=== PATIENT | female | born 1960 | race Caucasian/White ===

== ENCOUNTER → 2024-08-04 | Day surgery (SDC) | payer BC, OTHER | END | disposition home or self-care (01) | LOC: JRADUS-SUR 08:23 | PROVIDERS: ATTEND Obstetrics & Gynecology | PROC: 0HBU3ZX Excision of Left Breast, Percutaneous Approach, Diagnostic (ICD-10-PCS; principal; 2024-08-04) | DX: C50.912 Malignant neoplasm of unspecified site of left female breast (principal); Z17.0 Estrogen receptor positive status [ER+] | CPT/HCPCS: 19083; 19084; 76642-TC-RT; 77065-TC; 77066-TC; 87899; 88305-TC; 88342-TC; A4648; G0279-TC ==